=== PATIENT | male | born 1945 | race Caucasian/White ===

== ENCOUNTER 2020-08-14 08:16 | Inpatient (IN) | payer MEDICARE ==
[~2020-08-14] VITALS: Ht 190.5 cm; Wt 88.7 kg
[2020-08-14 08:34] LABS: BASO % 0.5 % (0.0-2.0); EOS # 0.3 (0.0-0.7); EOS % 3.1 % (0-4.0); GRAN # 5.6 (1.4-6.5); HEMATOCRIT 41.7 % (42.0-52.0); HEMOGLOBIN 14.6 g/dl (13.5-18.0); LYMPH # 1.3 (1.2-3.4); LYMPH % 16.2 % (20.0-51.0); MEAN CELL VOLUME 89 fl (80.0-100.0); MEAN CORPUSCULAR HEMOGLOBIN 31 pg (27.0-31.0); MEAN CORPUSCULAR HGB CONC 35 g/dl (33.0-37.0); MONO # 1.1 (0.1-0.6); MONO % 12.8 % (1.7-9.3); PLATELET COUNT 249 K/mm3 (130-400)
[2020-08-14 08:41] LABS: INR 1.4 (0.8-3.0); PROTHROMBIN TIME 15.5 SECONDS (9.7-12.8)
[2020-08-14 08:47] LABS: ALANINE AMINOTRANSFERASE 23 U/L (4-49); ALBUMIN 4.7 gm/dL (3.5-5.0); ALKALINE PHOSPHATASE 130 U/L (50-136); ANION GAP 12 mmol/L (7-16); AST,SGOT 27 U/L (15-37); BILIRUBIN,TOTAL 1.4 mg/dL (0.0-1.0); BLOOD UREA NITROGEN 19 mg/dL (9-20); CALCIUM 9.5 mg/dL (8.4-10.2); CARBON DIOXIDE 23 mmol/L (22-30); CHLORIDE 106 mmol/L (98-107); CREATININE, serum 1.63 (0.66-1.25); GLUCOSE 160 mg/dL (74-106); POTASSIUM 3.8 mmol/L (3.4-5.0); SODIUM 141 mmol/L (137-145); TOTAL PROTEIN 7.9 gm/dL (6.4-8.2)
[2020-08-14 08:49] LABS: ALCOHOL(ethanol),MEDICAL < 10 mg/dL
[2020-08-14 09:00] LABS: TROPONIN-I < 0.012 ng/mL (0.000-0.035)
[2020-08-14 09:33] LABS: COLLECTION METHOD IN
[2020-08-14 09:41] LABS: PH 5 (5-8); SQUAMOUS EPITHELIAL None Seen /hpf; URINE APPEARANCE Clear; URINE BACTERIA None Seen /hpf; URINE BILIRUBIN Negative (NEGATIVE); URINE BLOOD Negative (NEGATIVE); URINE COLOR Straw; URINE GLUCOSE Negative (NEGATIVE); URINE KETONE Negative (NEGATIVE); URINE LEUKOCYTE ESTERASE Negative (NEGATIVE); URINE NITRATE Negative (NEGATIVE); URINE PROTEIN(semi-quant) 1+ (NEGATIVE); URINE RBC 0-2 /hpf; URINE UROBILINOGEN Negative (NEGATIVE)
[2020-08-14] MEDS ORDERED: NORVASC 10MG10 MG PO (12:23)
[2020-08-14] MEDS ORDERED: LOPRESSOR 225 MG/TAB PO (12:24)
[2020-08-14] MEDS ORDERED: K-DUR 10 MEQ T10 MEQ PO (12:26)
[2020-08-14] MEDS ORDERED: LIPITOR 40MG TA40 MG PO (12:26)
[2020-08-14] MEDS ORDERED: GLUCOTROL10 MG PO (12:26)
[2020-08-14] MEDS ORDERED: PRILOSEC 20MG20 MG PO (12:27)
[2020-08-14] MEDS ORDERED: LASIX 40MG TABL40 MG PO (12:27)
[2020-08-14] MEDS ORDERED: PRINIVIL20 MG PO (12:28)
[2020-08-14] MEDS ORDERED: JANTOVEN5 MG (12:29)
[2020-08-14] MEDS ORDERED: SYNTHROID0.075 MG/T PO (12:30)
--- NOTE | 2020-08-14 12:45 | NUR ---
PATIENT ARRIVED TO ROOM 345. PATIENT ORIENTED AND SETTELED INTO ROOM. CALL LIGHT WITHIN REACH.
[2020-08-14 12:50] VITALS: BP 151/65; PULSE 66; TEMP 97.3
[2020-08-14 12:55] VITALS: BP 151/65; PULSE 66; TEMP 97.3
--- NOTE | 2020-08-14 13:32 | NUR ---
5 PAGE COMPLETED AT THIS TIME. PATIENT IS A&OX4. TELE IN PLACE. PATIENT DENIES PAIN. DR. HILL ENTERED ROOM DURING 5 PAGE. WILL COMPLETE MED REC AND ALLERGY REVIEW ONCE PATIENT IS DONE VISITING WITH PHYSICIAN.
[2020-08-14] MEDS ORDERED: EPA FISH OIL1 SGL PO (13:40)
[2020-08-14] MEDS ORDERED: VITAMIN FLUSH-F1 CAP (13:41)
--- NOTE | 2020-08-14 15:01 | NUR ---
PAGED FOR CRDIOLOGY CONSULT. AWAITING RETURN CALL.
--- NOTE | 2020-08-14 15:02 | NUR ---
AWARE OF CARDIOLOGY CONSULT. NO ORDERS GIVEN AT THIS TIME.
[2020-08-14 15:51] VITALS: BP 147/56; PULSE 54; TEMP 97.6
--- NOTE | 2020-08-14 16:30 | NUR ---
PATIENT PASSED WATER CHALLENGE. AHA DIET ORDER ALREADY PRESENT IN ORDERS PER .
--- NOTE | 2020-08-14 17:50 | NUR ---
PATIENT TOLERATING AHA DIET WITHOUT DIFFICULTIES. PATIENT EDUCATED ON THE USE OF CALL LIGHT AND SAFETY WHEN NEEDING TO GET UP. BED ALARM ON. CALL LIGHT IN REACH. PATIENT EATING DINNER TRAY. WILL REPORT OFF TO ONCOMING NURSE.
[2020-08-14 19:07] VITALS: BP 157/91; PULSE 48; TEMP 97.4
--- NOTE | 2020-08-14 21:15 | NUR ---
Pt. sitting up in bed at this time. Pt. is A&OX3, assessment complete. IV to lt. ac patent, IV fluids infusing per orders. Pt. denies pain or other needs, call light within reach.
[2020-08-14 23:40] VITALS: BP 141/62; PULSE 54; TEMP 97.7
[2020-08-15] VITALS (11 sets, daily range): BP systolic 137–162; BP diastolic 72–91; PULSE 62–80; TEMP 97.6–98.5
[2020-08-15 06:03] LABS: BASO # 0.1 (0.0-0.2); BASO % 0.6 % (0.0-2.0); EOS # 0.1 (0.0-0.7); EOS % 1.6 % (0-4.0); GRAN # 6.2 (1.4-6.5); GRAN % 68.4 % (42.2-75.2); HEMATOCRIT 39.4 % (42.0-52.0); HEMOGLOBIN 13.6 g/dl (13.5-18.0); LYMPH # 1.6 (1.2-3.4); LYMPH % 18.2 % (20.0-51.0); MEAN CELL VOLUME 90 fl (80.0-100.0); MEAN CORPUSCULAR HEMOGLOBIN 31 pg (27.0-31.0); MEAN CORPUSCULAR HGB CONC 35 g/dl (33.0-37.0); MEAN PLATELET VOLUME 9.3 fl (7.4-10.4); PLATELET COUNT 237 K/mm3 (130-400); RED BLOOD COUNT 4.37 M/mm3 (4.20-5.60); REDCELL DISTRIBUTION WIDTH-CV 13.1 % (11.5-14.5)
[2020-08-15 06:15] LABS: CALCIUM 8.7 mg/dL (8.4-10.2); CHOLESTEROL RISK RATIO 7.9; CREATININE, serum 1.43 (0.66-1.25); POTASSIUM 3.7 mmol/L (3.4-5.0)
[2020-08-15 09:11] LABS: INR 1.5 (0.8-3.0); PROTHROMBIN TIME 16.9 SECONDS (9.7-12.8)
--- NOTE | 2020-08-15 11:00 | NUR ---
ANESTHESIA NOTIFIED OF CONSULT FOR MISSY WITH POSSIBLE CARDIOVERSION. CONSENT FORM SIGNED AND PLACED ON PATIENTS CHART. THIS NURSE DISCUSSED NEURO CHECKS WITH MARC FUNEZ GIVEN TO CHANGE FREQUENCY FROM Q2H TO Q4H TO THIS NURSE.
--- NOTE | 2020-08-15 11:04 | NUR ---
SW met with the patient to discuss discharge plan. The patient lives in [place] with his , Ninoska (ph#[phone]). He reports independence with ADLs and has a cane available, if needed. The patient's PCP is Dr. Halima Ellis and he receives his medications from a mail order. He reports no difficulties obtaining his meds. The patient does not have a DPOA-HC in EMR, but he states that he does have one completed and that his is his DPOA-HC. The patient plans to return home with his upon discharge. The patient is to have a MISSY today. SW attempted to contact his , Ninoska, to review d/c plan. SW left her a voicemail. SW to follow as needed.
--- NOTE | 2020-08-15 11:05 | NUR ---
PATIENT TAKEN DOWN FOR MRI. WILL WAIT FOR PATIENT ARRIVAL BACK TO ROOM 345.
--- NOTE | 2020-08-15 11:57 | NUR ---
First visit from the brand analyst. No needs right now.
--- NOTE | 2020-08-15 12:30 | NUR ---
PATIENTS LEFT AC PARTIALLY PULLED OUT BY MRI. UPON ENTRY TO THE ROOM THE CATHETER HAD MIGRATED OUT OF THE AC AND BLOOD PRESENT ON SHEETS. LEFT AC INT DISCONTINUED. STUDENT RN ATTEMPTED IV START. NEW 20G INT STARTED IN LEFT FOREARM BY THIS NURSE. PATIENT TOLERATED WELL. PATIENT CONNECTED TO IV FLUIDS VIA GRAVITY FLOW FOR MISSY.
--- NOTE | 2020-08-15 12:35 | NUR ---
PATIENT TAKEN DOWN FOR MISSY VIA BED. WILL WAIT FOR ARRIVAL BACK TO ROOM 345.
--- NOTE | 2020-08-15 15:37 | NUR ---
PATIENT PULLED OUT IV POST MISSY,CARDIOVERSION. THIS NURSE ATTEMPTED TWICE WITHOUT SUCCESS. WILL HAVE ANOTHER NURSE ATTEMPT. POST PROCEDURE VSS. PATIENT DENIES PAIN AT THIS TIME. WILL CONTINUE TO MONITOR.
--- NOTE | 2020-08-15 19:23 | NUR ---
PATIENT HAD UNEVENTFUL REST OF THE AFTERNOON. PATIENT TOLERATING DIET WITHOUT DIFFICULTIES. PATIENT DENIES PAIN. CALL LIGHT IN REACH. BED ALARM ON. BEDSIDE REPORT GIVEN TO JB OLIVER.
--- NOTE | 2020-08-15 20:00 | NUR ---
Pt. sitting up in bed watching TV at this time. Pt, is A&OX3, assessment complete. INT started to rt. hand by glazier supervisor. Pt. denies pain or other needs, call light within reach.
[2020-08-16 04:11] VITALS: BP 142/75; PULSE 59; TEMP 97.6
[2020-08-16 05:28] LABS: BASO # 0.1 (0.0-0.2); BASO % 0.8 % (0.0-2.0); EOS # 0.2 (0.0-0.7); EOS % 3.5 % (0-4.0); GRAN # 3.7 (1.4-6.5); HEMATOCRIT 40.6 % (42.0-52.0); LYMPH # 1.6 (1.2-3.4); LYMPH % 24.4 % (20.0-51.0); MEAN CELL VOLUME 89 fl (80.0-100.0); MEAN CORPUSCULAR HEMOGLOBIN 31 pg (27.0-31.0); MEAN CORPUSCULAR HGB CONC 35 g/dl (33.0-37.0); MEAN PLATELET VOLUME 8.9 fl (7.4-10.4); MONO % 15.1 % (1.7-9.3); PLATELET COUNT 247 K/mm3 (130-400); RED BLOOD COUNT 4.55 M/mm3 (4.20-5.60)
[2020-08-16 05:34] LABS: INR 1.7 (0.8-3.0); PROTHROMBIN TIME 18.6 SECONDS (9.7-12.8)
[2020-08-16 05:43] LABS: CALCIUM 8.9 mg/dL (8.4-10.2); CREATININE, serum 1.38 (0.66-1.25); MAGNESIUM 2.1 mg/dL (1.6-2.3); POTASSIUM 3.7 mmol/L (3.4-5.0)
--- NOTE | 2020-08-16 06:47 | NUR ---
bedside shift report received from JB Sims
[2020-08-16 07:40] VITALS: BP 149/74; PULSE 73; TEMP 97.4
--- NOTE | 2020-08-16 07:45 | NUR ---
assisted up to bathroom and voids without difficulty, gait is steady, assisted back to bed, full assessment completed, see interventions for further info, denies needs
--- NOTE | 2020-08-16 10:14 | NUR ---
appears to be dozing, in bed with eyes closed, resp quiet and easy
[2020-08-16 11:12] VITALS: BP 163/84; PULSE 57; TEMP 97.8
--- NOTE | 2020-08-16 12:15 | NUR ---
sitting up in bed having lunch, denies any needs
--- NOTE | 2020-08-16 13:33 | NUR ---
appears to be dozing
--- NOTE | 2020-08-16 13:37 | NUR ---
SW attempted to contact the patient's to review d/c plan. SW left her a message. SW then contacted and reviewed the d/c plan with the patient's daughter, Ayesha. Ayesha reports that they have no concerns about the patient returning home and are ready for him to come home. No additional needs at this time.
--- NOTE | 2020-08-16 15:23 | NUR ---
resting in bed watching TV
[2020-08-16 15:56] VITALS: BP 151/76; PULSE 55; TEMP 97.3
--- NOTE | 2020-08-16 15:59 | NUR ---
watching TV, denies needs
--- NOTE | 2020-08-16 16:43 | NUR ---
The patient's , Ninoska, returned SW's phone call. Ninoska reports that she has no concerns about the patient returning back home with her upon discharge. No additional needs at this time.
--- NOTE | 2020-08-16 18:51 | NUR ---
resting in bed, watching TV, bedside shift report given to JB Thomas
[2020-08-16 19:54] VITALS: BP 154/80; PULSE 76; TEMP 98
--- NOTE | 2020-08-16 20:30 | NUR ---
Initial shift assessment done- denies pain, states no chest pain, or SOB, or palpitations, Tele NSR, VSS, no requests, having a snack that family left for him
[2020-08-16 22:58] VITALS: BP 148/79; PULSE 77; TEMP 97.9
[2020-08-17 03:12] VITALS: BP 146/80; PULSE 66; TEMP 97.9
--- NOTE | 2020-08-17 05:16 | NUR ---
Quiet night- Tele SR rate 68/min, denies pain- up to bathroom with assist- steady on feet VSS
[2020-08-17 06:52] LABS: BASO % 0.6 % (0.0-2.0); EOS # 0.2 (0.0-0.7); EOS % 3.3 % (0-4.0); GRAN # 4.3 (1.4-6.5); GRAN % 61.8 % (42.2-75.2); HEMATOCRIT 39.8 % (42.0-52.0); LYMPH # 1.2 (1.2-3.4); LYMPH % 17.6 % (20.0-51.0); MEAN CELL VOLUME 89 fl (80.0-100.0); MEAN CORPUSCULAR HEMOGLOBIN 31 pg (27.0-31.0); MEAN CORPUSCULAR HGB CONC 35 g/dl (33.0-37.0); MEAN PLATELET VOLUME 9.2 fl (7.4-10.4); MONO # 1.2 (0.1-0.6); MONO % 16.6 % (1.7-9.3); PLATELET COUNT 237 K/mm3 (130-400); RED BLOOD COUNT 4.47 M/mm3 (4.20-5.60)
[2020-08-17 06:54] LABS: INR 2.3 (0.8-3.0); PROTHROMBIN TIME 26.4 SECONDS (9.7-12.8)
[2020-08-17 06:57] LABS: CALCIUM 8.8 mg/dL (8.4-10.2); CREATININE, serum 1.4 (0.66-1.25); POTASSIUM 3.5 mmol/L (3.4-5.0)
[2020-08-17 08:15] VITALS: BP 144/70; PULSE 99; TEMP 97.6
[2020-08-17] MEDS ORDERED: LIPITOR 80MG80 MG PO (09:00)
[2020-08-17] MEDS ORDERED: BETAPACE 80MG80 MG PO (09:00)
[2020-08-17] MEDS ORDERED: ELIQUIS 5MG PO (09:00)
[2020-08-17] MEDS ORDERED: ASPIRIN 81M81 MG/TA2 PO (09:01)
[2020-08-17 11:14] VITALS: BP 140/69; PULSE 51; TEMP 98.2
--- NOTE | 2020-08-17 12:10 | NUR ---
SEE MORNING SHIFT ASSESSMENT. NEURO CHECKS STABLE. PATIENT DENIES COMPLAINTS OF PAIN. VSS. DISCHARGE INSTRUCTIONS REVIEWED WITH PATIENT. QUESTIONS SOUGHT AND ANSWERED. PATIENT PERSONAL BELONGING GATHERED. PATIENT TAKEN TO PERSONAL VEHICLE VIA WHEELCHAIR BY SURGICAL STAFF. PATIENT DISCHARGED.
== END 2020-08-17 12:10 | disposition home or self-care (01) | DRG 65 ==
LOC: COL.ER 08:16 → SURG 09:53
PROVIDERS: Emergency Medicine; Physician Assistant; ADMIT Hospitalist
PROC: 5A2204Z Restoration of Cardiac Rhythm, Single (ICD-10-PCS; principal; 2020-08-15)
DX: I63.9 Cerebral infarction, unspecified (principal); I48.19 Other persistent atrial fibrillation; N17.9 Acute kidney failure, unspecified; E03.9 Hypothyroidism, unspecified; R29.700 NIHSS score 0; I12.9 Hypertensive chronic kidney disease with stage 1 through stage 4 chronic kidney disease, or unspecified chronic kidney disease; N18.9 Chronic kidney disease, unspecified; E11.22 Type 2 diabetes mellitus with diabetic chronic kidney disease; E11.42 Type 2 diabetes mellitus with diabetic polyneuropathy; I44.0 Atrioventricular block, first degree; Z20.828 Contact with and (suspected) exposure to other viral communicable diseases; Z86.73 Personal history of transient ischemic attack (TIA), and cerebral infarction without residual deficits; Z79.01 Long term (current) use of anticoagulants; Z79.84 Long term (current) use of oral hypoglycemic drugs
CPT/HCPCS: 99231-AI; 99232-AI; 99239; A9585; G0378; J1650; J1815; J2704; J7030; Q9967

== ENCOUNTER 2020-09-23 08:05 | Day surgery (SDC) | payer MEDICARE, OTHER ==
[~2020-09-23] VITALS: Ht 190.5 cm; Wt 88.6 kg
[~2020-09-23 08:05] MED LIST: ASPIRIN 81M81 MG/TA2 PO; BETAPACE 80MG80 MG PO; ELIQUIS 5MG PO; EPA FISH OIL1 SGL PO; GLUCOTROL10 MG PO; JANTOVEN5 MG; K-DUR 10 MEQ T10 MEQ PO; LASIX 40MG TABL40 MG PO; LIPITOR 40MG TA40 MG PO; LIPITOR 80MG80 MG PO; LOPRESSOR 225 MG/TAB PO; NORVASC 10MG10 MG PO; PRILOSEC 20MG20 MG PO; PRINIVIL20 MG PO; SYNTHROID0.075 MG/T PO; VITAMIN FLUSH-F1 CAP
--- NOTE | 2020-09-23 08:50 | NUR ---
Pt in SR, procedure cancelled.
[2020-09-23] MEDS ORDERED: BETAPACE 120MG120 MG PO (08:52)
[2020-09-23 09:01] VITALS: BP 177/87; PULSE 54; TEMP 97.5
== END 2020-09-23 09:15 | disposition home or self-care (01) ==
LOC: COL.CAR 08:05
DX: I48.19 Other persistent atrial fibrillation (principal); E03.9 Hypothyroidism, unspecified; Z86.73 Personal history of transient ischemic attack (TIA), and cerebral infarction without residual deficits; E11.22 Type 2 diabetes mellitus with diabetic chronic kidney disease; I12.9 Hypertensive chronic kidney disease with stage 1 through stage 4 chronic kidney disease, or unspecified chronic kidney disease; N18.9 Chronic kidney disease, unspecified; Z79.82 Long term (current) use of aspirin; Z79.01 Long term (current) use of anticoagulants; Z79.899 Other long term (current) drug therapy; E78.2 Mixed hyperlipidemia; Z20.822 Contact with and (suspected) exposure to COVID-19; Z53.8 Procedure and treatment not carried out for other reasons

== ENCOUNTER 2022-05-20 12:26 | Emergency (ER) | payer MEDICARE, OTHER ==
[~2022-05-20] VITALS: Ht 188 cm; Wt 88.2 kg
[~2022-05-20 12:26] MED LIST changes: +BETAPACE 120MG120 MG PO
[2022-05-20 12:51] VITALS: TEMP 97.9
[2022-05-20 13:38] LABS: HEMATOCRIT 37.8 % (42.0-52.0); HEMOGLOBIN 13.1 g/dl (13.5-18.0); MEAN CELL VOLUME 86 fl (80.0-100.0); MEAN CORPUSCULAR HEMOGLOBIN 30 pg (27-31); MEAN CORPUSCULAR HGB CONC 35 g/dl (33.0-37.0); MEAN PLATELET VOLUME 9.8 fl (7.4-10.4); PLATELET COUNT 313 K/mm3 (130-400); RED BLOOD COUNT 4.38 M/mm3 (4.20-5.60)
[2022-05-20 13:58] LABS: ALBUMIN 3.1 gm/dL (3.4-4.8); BILIRUBIN,TOTAL 1.2 mg/dL (0.2-1.2); CALCIUM 9.8 mg/dL (8.4-10.2); CREATININE, serum 2.26 mg/dL (0.72-1.25); POTASSIUM 3.4 mmol/L (3.5-4.5); TOTAL PROTEIN 7.4 gm/dL (6.2-8.1)
[2022-05-20 14:02] LABS: BAND 2 % (0-10); LYMPHOCYTE 5 % (20.0-51.0); NEUTROPHILS 82 % (42.0-75.2); OVALOCYTES 1+; PLATELET ESTIMATE NORMAL (NORMAL)
[2022-05-20] MEDS ORDERED: CEPHALEXIN500 M1 PO (15:20)
[2022-05-20 15:38] VITALS: BP 151/84; PULSE 74
== END 2022-05-20 15:38 | disposition home or self-care (01) ==
LOC: COL.ER 12:26
PROVIDERS: Physician Assistant
DX: E11.621 Type 2 diabetes mellitus with foot ulcer (principal); L97.529 Non-pressure chronic ulcer of other part of left foot with unspecified severity; E11.65 Type 2 diabetes mellitus with hyperglycemia; Z86.73 Personal history of transient ischemic attack (TIA), and cerebral infarction without residual deficits; Z79.82 Long term (current) use of aspirin; Z79.84 Long term (current) use of oral hypoglycemic drugs; Z79.01 Long term (current) use of anticoagulants
CPT/HCPCS: J1815

== ENCOUNTER 2022-05-31 15:57 | Inpatient (IN) | payer MEDICARE, OTHER ==
[~2022-05-31] VITALS: Ht 190.5 cm; Wt 88.2 kg
[~2022-05-31 15:57] MED LIST changes: +CEPHALEXIN500 M1 PO
[2022-05-31 16:23] LABS: BASO # 0.1 K/mm3 (0.0-0.2); BASO % 0.8 % (0.0-2.0); EOS # 0.1 K/mm3 (0.0-0.7); EOS % 0.7 % (0.0-4.0); GRAN # 9.6 K/mm3 (1.4-6.5); GRAN % 79.5 % (42.2-75.2); HEMOGLOBIN 13.4 g/dl (13.5-18.0); LYMPH # 1.2 K/mm3 (1.2-3.4); MEAN CELL VOLUME 84 fl (80.0-100.0); MEAN CORPUSCULAR HEMOGLOBIN 30 pg (27-31); MEAN CORPUSCULAR HGB CONC 35 g/dl (33.0-37.0); MEAN PLATELET VOLUME 8.9 fl (7.4-10.4); MONO # 1.1 K/mm3 (0.1-0.6); MONO % 8.8 % (1.7-9.3); PLATELET COUNT 407 K/mm3 (130-400); REDCELL DISTRIBUTION WIDTH-CV 12.7 % (11.5-14.5)
[2022-05-31 16:40] LABS: ALBUMIN 3.6 gm/dL (3.4-4.8); BILIRUBIN,TOTAL 1.3 mg/dL (0.2-1.2); C-REACTIVE PROTEIN 0.3 mg/dL (0.00-0.50); CALCIUM 9.4 mg/dL (8.4-10.2); CREATININE, serum 3.54 mg/dL (0.72-1.25); POTASSIUM 3.7 mmol/L (3.5-4.5); TOTAL PROTEIN 8.1 gm/dL (6.2-8.1)
[2022-05-31 19:40] VITALS: BP 166/77; PULSE 63; TEMP 98
[2022-05-31] MEDS ORDERED: BETAPACE 80MG80 MG PO (20:23)
[2022-05-31] MEDS ORDERED: BETAPACE 120MG120 MG PO (20:28)
[2022-05-31 23:53] VITALS: BP 156/74; PULSE 95
[2022-06-01 03:42] VITALS: BP 167/84; PULSE 68; TEMP 97.8
--- NOTE | 2022-06-01 06:20 | NUR ---
PATIENT HAS HAD AN UNEVENTFUL NIGHT. PATIENT HAS RESTED IN BED AND DENIES PAIN, NEEDS OR CONCERNS. CALL LIGHT REMAINS WITHIN PATIENT REACH.
[2022-06-01 06:28] LABS: BASO # 0.1 K/mm3 (0.0-0.2); BASO % 0.7 % (0.0-2.0); EOS # 0.1 K/mm3 (0.0-0.7); EOS % 1.3 % (0.0-4.0); GRAN % 74.2 % (42.2-75.2); LYMPH # 1.3 K/mm3 (1.2-3.4); LYMPH % 11.8 % (20.0-51.0); MEAN CELL VOLUME 86 fl (80.0-100.0); MEAN CORPUSCULAR HGB CONC 35 g/dl (33.0-37.0); MEAN PLATELET VOLUME 9.1 fl (7.4-10.4); MONO # 1.2 K/mm3 (0.1-0.6); MONO % 11.6 % (1.7-9.3); PLATELET COUNT 345 K/mm3 (130-400); RED BLOOD COUNT 3.73 M/mm3 (4.20-5.60); REDCELL DISTRIBUTION WIDTH-CV 12.8 % (11.5-14.5)
[2022-06-01 06:32] LABS: HEMATOCRIT 32.2 % (42.0-52.0); MEAN CORPUSCULAR HEMOGLOBIN 30 pg (27-31)
[2022-06-01 06:33] LABS: HEMOGLOBIN 11.3 g/dl (13.5-18.0)
[2022-06-01 06:41] LABS: CALCIUM 8.4 mg/dL (8.4-10.2); CREATININE, serum 3.41 mg/dL (0.72-1.25); MAGNESIUM 2.4 mg/dL (1.6-2.6); POTASSIUM 3.4 mmol/L (3.5-4.5)
[2022-06-01 08:15] VITALS: BP 176/81; PULSE 61; TEMP 98.1
--- NOTE | 2022-06-01 10:30 | NUR ---
PT ALERT AND ORIENTED TIMES 4 SITTING IN CHAIR EATING BREAKFAST. VITALS STABLE. PT ON ROOM AIR. CALL LIGHT WITHIN REACH, NO FURTHER NEEDS IDENTIFIED.
--- NOTE | 2022-06-01 10:46 | NUR ---
Economic History Teacher met with patient to discuss discharge planning. SW introduced herself and explained her role. Patient stated "no, my doesn't beat me" and smiled. Patient lives in [place] with his , Ninoska (ph#[phone]) and sees Dr. Storey for primary care. Patient obtains medications from [employer] with no difficulties and does not normally use any DME, however has a cane that he secured from an estate sale. Patient is normally independent with ADLS and plans to return home at time of discharge. Patient believes he has completed DPOA-HC which he stated should designate his , Ninoska. Patient does not have Advance Directives in EMR. Discharge Plan:Home
[2022-06-01 11:40] VITALS: BP 156/73; PULSE 51; TEMP 98.2
[2022-06-01 13:39] LABS: CLOSTRIDIUM DIFF A/B NEG; CLOSTRIDIUM DIFF A/B INTERP No C.diff present
--- NOTE | 2022-06-01 14:57 | NUR ---
Noris: No uatsdin preference Situation: rotating field assembler went by room on rounds Background: Pt was resting and content Assessment: Pt has no needs right now. Pt appreciated the visit Recommendation: rotating field assembler will follow up as needed
[2022-06-01] MEDS ORDERED: DUREZOL 5 ML5 ML OD (15:10)
[2022-06-01] MEDS ORDERED: COSOPT 2%-0.5%10 ML OD (15:11)
[2022-06-01] MEDS ORDERED: ALPHAGAN 15 ML15 ML OD (15:11)
[2022-06-01 16:06] VITALS: BP 156/70; PULSE 63; TEMP 98.1
--- NOTE | 2022-06-01 17:35 | NUR ---
PT A&O TIMES 4, LAYING IN BED. VITALS STABLE, PT ON ROOM AIR. PT DENIES PAIN. CALL LIGHT WITHIN REACH. NO FURTHER NEEDS IDENTIFIED.
[2022-06-01 20:02] VITALS: BP 157/74; PULSE 63; TEMP 98
[2022-06-01 23:54] VITALS: BP 155/74; PULSE 62; TEMP 98.4
[2022-06-02 04:14] VITALS: BP 156/73; PULSE 65; TEMP 97.6
[2022-06-02 07:10] VITALS: BP 162/75; PULSE 65; TEMP 98
[2022-06-02 07:11] LABS: HEMOGLOBIN 11.2 g/dl (13.5-18.0); MEAN CELL VOLUME 89 fl (80.0-100.0); MEAN CORPUSCULAR HEMOGLOBIN 30 pg (27-31); MEAN CORPUSCULAR HGB CONC 34 g/dl (33.0-37.0); MEAN PLATELET VOLUME 8.9 fl (7.4-10.4); PLATELET COUNT 335 K/mm3 (130-400); RED BLOOD COUNT 3.71 M/mm3 (4.20-5.60); REDCELL DISTRIBUTION WIDTH-CV 13.1 % (11.5-14.5)
[2022-06-02 07:18] LABS: CALCIUM 8.4 mg/dL (8.4-10.2); CREATININE, serum 3.62 mg/dL (0.72-1.25); POTASSIUM 3.7 mmol/L (3.5-4.5)
[2022-06-02 07:50] LABS: BAND 4 % (0-10); EOSINOPHIL 1 % (0-4); LYMPHOCYTE 10 % (20.0-51.0); NEUTROPHILS 76 % (42.0-75.2); OVALOCYTES 1+; SCHISTOCYTES 1+
[2022-06-02 07:51] LABS: PLATELET ESTIMATE NORMAL (NORMAL)
[2022-06-02 11:13] VITALS: BP 153/72; PULSE 63; TEMP 98.5
--- NOTE | 2022-06-02 13:00 | NUR ---
PATIENT DID NOT RECIEVE LUNCH DOSE OF INSULIN 4 UNITS BECAUSE HE IS REFUSING TO EAT A LUNCH. HIS BLOOD SUGAR WAS 178. WILL CONTINUE TO MONITOR
[2022-06-02 15:41] VITALS: BP 150/74; PULSE 62; TEMP 97.4
--- NOTE | 2022-06-02 18:24 | NUR ---
PATIENT IS STILL C/O NAUSEA AND LOW APPETITE. 2X GIVEN ZOFRAN 4MG IV PUSH TO RELIIEVE. PATIENT IS REFUSING MEALS, BUT I WAS ABLE TO GET HIM TO DRINK SOME FLUIDS INCLUDING BROTH, GLUCERNA, AND WATER. ALL DOSES OF INSULIN WERE HELD TODAY DUE TO NOT CONSUMING MEALS AND BS DID NOT CLIMB. PATIENT FOOD DRESSING WAS CHANGED THIS AM. WOUND STILL LOOKS THE SAME. NEW ABX STARTED PER MD ORDERS BECAUSE OF RENAL FUNCTION. PATIENT DOES NOT COMPLAIN OF ANY PAIN
[2022-06-02 21:08] VITALS: BP 151/66; PULSE 66; TEMP 98.3
[2022-06-03 00:20] VITALS: BP 154/72; PULSE 64; TEMP 98.1
[2022-06-03 05:05] VITALS: BP 158/76; PULSE 66; TEMP 98.8
[2022-06-03 06:52] LABS: CALCIUM 8.5 mg/dL (8.4-10.2); CREATININE, serum 4.28 mg/dL (0.72-1.25); POTASSIUM 4.1 mmol/L (3.5-4.5)
[2022-06-03 07:04] LABS: HEMOGLOBIN 11.7 g/dl (13.5-18.0); MEAN CELL VOLUME 88 fl (80.0-100.0); MEAN CORPUSCULAR HEMOGLOBIN 30 pg (27-31); MEAN CORPUSCULAR HGB CONC 34 g/dl (33.0-37.0); MEAN PLATELET VOLUME 9.6 fl (7.4-10.4); PLATELET COUNT 373 K/mm3 (130-400); RED BLOOD COUNT 3.86 M/mm3 (4.20-5.60); REDCELL DISTRIBUTION WIDTH-CV 13.2 % (11.5-14.5)
[2022-06-03 07:09] LABS: HEMATOCRIT 34.1 % (42.0-52.0)
[2022-06-03 07:23] VITALS: BP 171/74; PULSE 64; TEMP 97.9
[2022-06-03 08:00] LABS: BAND 3 % (0-10); EOSINOPHIL 2 % (0-4); LYMPHOCYTE 7 % (20.0-51.0); METAMYELOCYTE 1 % (0-0); NEUTROPHILS 82 % (42.0-75.2); OVALOCYTES 1+; PLATELET ESTIMATE NORMAL (NORMAL)
--- NOTE | 2022-06-03 08:02 | NUR ---
Pt assessment complete. Pt is sitting up in bed upon entry, he is A/O x4. His breathing is even and unlabored on RA. Pt denies any SOB. No pain at this time. Dressing in place to L foot, will change later today. POC discussed with patient. No needs at this time.
--- NOTE | 2022-06-03 09:25 | NUR ---
Pt states he has had most of glucerna and a few bites of toast. Does not feel nauseated at this time. Spoke with him regarding the urine sample as well as the IVF.
[2022-06-03 11:22] VITALS: BP 150/65; PULSE 64; TEMP 97.8
--- NOTE | 2022-06-03 15:02 | NUR ---
Gomez catheter placed. Approximately 30mls drained from bag. Pt tolerated well.
[2022-06-03 15:14] LABS: COLLECTION METHOD CLEAN CATCH
[2022-06-03 15:25] LABS: URINE APPEARANCE Hazy (CLEAR/HAZY); URINE BLOOD 3+ (NEGATIVE); URINE COLOR Yellow (YELLOW); URINE GLUCOSE TRACE (NEGATIVE); URINE KETONE TRACE (NEGATIVE); URINE NITRATE Negative (NEGATIVE); URINE PROTEIN(semi-quant) 3+ (NEGATIVE); URINE UROBILINOGEN 0.2 E.U/dL (0.2-1.0)
[2022-06-03 15:26] VITALS: BP 151/66; PULSE 63; TEMP 98.3
[2022-06-03 15:27] LABS: MUCOUS Present (NOT PRESENT); SQUAMOUS EPITHELIAL 0-2 /hpf (0-10); URINE BACTERIA Rare /hpf (NONE SEEN); URINE RBC >50 /hpf (0-2)
[2022-06-03 15:31] LABS: CALCIUM 8.5 mg/dL (8.4-10.2); CREATININE, serum 4.5 mg/dL (0.72-1.25); POTASSIUM 3.5 mmol/L (3.5-4.5)
[2022-06-03 16:06] LABS: CREATININE, serum 4.4 mg/dL (0.72-1.25)
[2022-06-03 16:28] LABS: FRACTIONAL EXCRETION OF NA+ 0.59 %
--- NOTE | 2022-06-03 17:19 | NUR ---
Pt sat in bed through the day. Not a lot of motivation to move around or sit in the chair. Highly encouraged to work with therapy as he was initially refusing. Pt encouraged to try and eat and drink when taking pills as this seems to nauseate patient, very hesitant. Dr. Keenan notified of low urine output. Call light within reach.
[2022-06-03 20:32] VITALS: BP 161/79; PULSE 93; TEMP 98.7
[2022-06-04] VITALS (7 sets, daily range): BP systolic 147–169; BP diastolic 68–79; PULSE 52–85; TEMP 97.5–98.9
[2022-06-04 06:49] LABS: MEAN CELL VOLUME 89 fl (80.0-100.0); MEAN CORPUSCULAR HEMOGLOBIN 30 pg (27-31); MEAN CORPUSCULAR HGB CONC 34 g/dl (33.0-37.0); MEAN PLATELET VOLUME 9.1 fl (7.4-10.4); PLATELET COUNT 335 K/mm3 (130-400); RED BLOOD COUNT 3.69 M/mm3 (4.20-5.60); REDCELL DISTRIBUTION WIDTH-CV 13.2 % (11.5-14.5)
[2022-06-04 07:02] LABS: HEMATOCRIT 32.7 % (42.0-52.0)
--- NOTE | 2022-06-04 07:17 | NUR ---
PT AWAKE, LYING IN BED, DENIES COMPLAINTS OF PAIN, BREAKFAST ORDERED FOR THE PATIENT.
[2022-06-04 07:18] LABS: ALBUMIN 2.7 gm/dL (3.4-4.8); CALCIUM 8.2 mg/dL (8.4-10.2); CREATININE, serum 4.47 mg/dL (0.72-1.25); MAGNESIUM 2.3 mg/dL (1.6-2.6); PHOSPHOROUS 3.9 mg/dL (2.3-4.7); POTASSIUM 3.4 mmol/L (3.5-4.5)
[2022-06-04 08:06] LABS: BAND 2 % (0-10); EOSINOPHIL 2 % (0-4); LYMPHOCYTE 13 % (20.0-51.0); NEUTROPHILS 79 % (42.0-75.2)
[2022-06-04 08:07] LABS: PLATELET ESTIMATE NORMAL (NORMAL); SCHISTOCYTES 1+
--- NOTE | 2022-06-04 13:51 | NUR ---
Primary nurse was assisted with [phone] patient care by [employer] [facility] student Ilsa Segovia and [employer] instructor Hillary ANG-GEORGE, RN
--- NOTE | 2022-06-04 18:57 | NUR ---
pt had a calm day, vss, alert and orient x4,due medication given all tolarated well, pt c/o nausea throughout the day, wound care done x1, pt with laura draining bloody urine, pt on iv n/saline. denies pain throughout the day.
[2022-06-05 03:32] VITALS: BP 157/68; PULSE 63; TEMP 97.5
--- NOTE | 2022-06-05 05:45 | NUR ---
ASSESSMENT COMPLETE FOR ASSOCIATE MARKETING MANAGER. PT RESTING IN BED NAPPING. PT DENIED GENERAL PAIN, CHEST PAIN, PALPITATIONS, N,V, SOB OR DIZZINESS. PT CONTINUES WITH HEMATURIA. I & O'S FOR THIS SHIFT WAS 1380ML IN, 250ML OUT. (NOTE: ORDER GIVEN AT END OF DAYSHIFT AROUND 1900HRS BY HOSPITALIST TO CONTINUE TO WATCHING FOR ANOTHER 12HRS FOR A TOTAL OF 24HRS PER DAYSHIFT RN). WILL CONTINIUE TO MONITOR; WILL PASS ON TO DAYSHIFT RN. PT ALSO HAD A LOOSE BLOODY STOOL. OCCULT STOOL COLLECTED AND SENT TO LAB. OCCULT STOOL WAS POSITIVE. HOSPITALIST AWARE. GI CONSULT ORDERED AND CALLED. PT EXPRESSED NO ADDITIONAL NEEDS AT THIS TIME. CALL LIGHT WITHIN REACH.
[2022-06-05 06:54] LABS: HEMOGLOBIN 11.2 g/dl (13.5-18.0); MEAN CELL VOLUME 88 fl (80.0-100.0); MEAN CORPUSCULAR HEMOGLOBIN 30 pg (27-31); MEAN CORPUSCULAR HGB CONC 34 g/dl (33.0-37.0); MEAN PLATELET VOLUME 9.1 fl (7.4-10.4); PLATELET COUNT 366 K/mm3 (130-400); RED BLOOD COUNT 3.72 M/mm3 (4.20-5.60); REDCELL DISTRIBUTION WIDTH-CV 13.4 % (11.5-14.5)
[2022-06-05 07:02] LABS: HEMATOCRIT 32.8 % (42.0-52.0)
[2022-06-05 07:15] LABS: ALBUMIN 2.8 gm/dL (3.4-4.8); CALCIUM 8.3 mg/dL (8.4-10.2); CREATININE, serum 4.52 mg/dL (0.72-1.25); PHOSPHOROUS 3.9 mg/dL (2.3-4.7); POTASSIUM 3.7 mmol/L (3.5-4.5)
[2022-06-05 07:19] VITALS: BP 174/72; PULSE 64; TEMP 98
[2022-06-05 07:36] LABS: BAND 10 % (0-10); LYMPHOCYTE 5 % (20.0-51.0); NEUTROPHILS 77 % (42.0-75.2); OVALOCYTES 1+; PLATELET ESTIMATE NORMAL (NORMAL)
[2022-06-05 11:45] VITALS: BP 166/92; PULSE 61; TEMP 98
--- NOTE | 2022-06-05 13:49 | NUR ---
Primary nurse was assisted with [phone] patient care by [employer] student Ilsa Segovia and [employer] instructor Hillary PETERSON, RN.
--- NOTE | 2022-06-05 14:50 | NUR ---
Patient to transfer to [facility].
--- NOTE | 2022-06-05 15:19 | NUR ---
DRESSING TO FOOT CHANGED, PATIENT TOLERATED WITH NO ISSUES OR PAIN.
[2022-06-05 16:00] VITALS: BP 175/77; PULSE 60; TEMP 97.6
--- NOTE | 2022-06-05 17:12 | NUR ---
REPORT CALLED TO AUGUSTO LEE TO JB BYRD. ALL QUESTIONS ANSWERED, AND CALL BACK NUMBER GIVEN.
--- NOTE | 2022-06-05 17:36 | NUR ---
PATIENT PICKED UP BY EMS TRANSPORT. PATIENT LEFT IN STABLE CONDITION. NO ISSUES. IV AND CURTIS PATENT.
== END 2022-06-05 17:36 | disposition short-term general hospital (02) | DRG 638 ==
LOC: COL.ER 15:57 → MEDICAL 18:45 → COL.ER 18:45 → MEDICAL 18:46
PROVIDERS: Emergency Medicine; Internal Medicine; Student in an Organized Health Care Education/Training Program; ADMIT Student in an Organized Health Care Education/Training Program
DX: E11.621 Type 2 diabetes mellitus with foot ulcer (principal); L03.116 Cellulitis of left lower limb; E87.2 Acidosis; K92.1 Melena; L97.529 Non-pressure chronic ulcer of other part of left foot with unspecified severity; I12.9 Hypertensive chronic kidney disease with stage 1 through stage 4 chronic kidney disease, or unspecified chronic kidney disease; I48.91 Unspecified atrial fibrillation; N17.9 Acute kidney failure, unspecified; N18.9 Chronic kidney disease, unspecified; E11.65 Type 2 diabetes mellitus with hyperglycemia; E11.22 Type 2 diabetes mellitus with diabetic chronic kidney disease; E88.09 Other disorders of plasma-protein metabolism, not elsewhere classified; N05.9 Unspecified nephritic syndrome with unspecified morphologic changes; E03.9 Hypothyroidism, unspecified; K21.9 Gastro-esophageal reflux disease without esophagitis; K30 Functional dyspepsia; R31.9 Hematuria, unspecified; E78.5 Hyperlipidemia, unspecified; R53.1 Weakness; Z79.01 Long term (current) use of anticoagulants; Z79.82 Long term (current) use of aspirin; Z86.73 Personal history of transient ischemic attack (TIA), and cerebral infarction without residual deficits
CPT/HCPCS: OP; A4314; G0378; J0692; J1815; J2405; J2543; J3370; J7030; J7050; J7120

== ENCOUNTER 2022-09-15 09:36 | Day surgery (SDC) | payer MEDICARE, OTHER ==
[~2022-09-15] VITALS: Ht 190.5 cm; Wt 77.5 kg
[~2022-09-15 09:36] MED LIST changes: +ALPHAGAN 15 ML15 ML OD; +B-121000 MCG PO; +CORDARONE200 MG/TAB PO; +COREG 25MG25 MG/TAB PO; +COREG12.5 MG PO; +COSOPT 2%-0.5%10 ML OD; +DOXYCYCLINE 10100 MG PO; +DUREZOL 5 ML5 ML OD; +HYDRALAZINE HC100 MG PO; +IMDUR 60MG60 MG/TAB PO; +MAALOX ADVANCE148 ML PO; +MELATONIN5 M1 SL; +MIRALAX PA17 GM/Dose PO; +MYLANTA COAT-C355 ML PO; +NOVOLOG FLEX100 U/ML SQ; +PEPCID 20MG TAB20 MG PO; +PHOSLO667 MG PO; +PREDNISONE10 MG PO; +PRESERVISION1 SGL PO; +TYLENOL 325MG325 MG PO
[2022-09-15 10:43] LABS: MEAN CELL VOLUME 92 fl (80.0-100.0); MEAN CORPUSCULAR HEMOGLOBIN 29 pg (27-31); MEAN CORPUSCULAR HGB CONC 32 g/dl (33.0-37.0); MEAN PLATELET VOLUME 10.3 fl (7.4-10.4); PLATELET COUNT 482 K/mm3 (130-400); RED BLOOD COUNT 3.42 M/mm3 (4.20-5.60)
[2022-09-15 10:46] LABS: HEMATOCRIT 31.6 % (42.0-52.0)
[2022-09-15 10:47] LABS: INR 2.6 (0.8-3.0); PROTHROMBIN TIME 30.2 SECONDS (9.7-12.8)
[2022-09-15 10:49] VITALS: BP 128/62; PULSE 65; TEMP 97.7
[2022-09-15 10:50] LABS: PARTIAL THROMBOPLASTIN TIME 33.6 SECONDS (26.0-37.0)
[2022-09-15 10:54] LABS: CALCIUM 8.6 mg/dL (8.4-10.2); CREATININE, serum 4.63 mg/dL (0.72-1.25); POTASSIUM 4.8 mmol/L (3.5-4.5)
[2022-09-15] MEDS ORDERED: LEVEMIR FLEX100 U/ML SQ (11:14)
[2022-09-15 11:15] LABS: THYROID STIMULATING HORMONE 1.287 uIU/mL (0.350-4.940)
[2022-09-15 11:33] LABS: BAND 2 % (0-10); LYMPHOCYTE 3 % (20.0-51.0); NEUTROPHILS 87 % (42.0-75.2); PLATELET ESTIMATE INCREASED (NORMAL)
[2022-09-15 11:34] LABS: ANISOCYTOSIS 1+; HYPOCHROMIA 2+; MICROCYTOSIS 1+; OVALOCYTES 1+; POIKILOCYTOSIS 2+; SCHISTOCYTES 1+
[2022-09-15 12:15] VITALS: BP 112/59; PULSE 56
[2022-09-15 12:30] VITALS: BP 116/71; PULSE 63
[2022-09-15 12:45] VITALS: BP 128/67; PULSE 65
[2022-09-15 13:00] VITALS: BP 128/71; PULSE 67
[2022-09-15 13:15] VITALS: BP 124/65; PULSE 68
--- NOTE | 2022-09-15 13:34 | NUR ---
Pt is ready for discharge. He did well during his recovery, remaining in sinus rhythm. repeat ekg was obtained. I reviewed dc/fu instructions with pt and his . they verbalized understanding. Pt is amb with walker in room 15; gait is steady. Pt escorted to exit via wheelchair.
[2022-09-16 08:30] LABS: PATHOLOGY DIFF REVIEW OK
== END 2022-09-15 16:25 | disposition home or self-care (01) ==
LOC: COL.CAR 09:36
PROVIDERS: Internal Medicine Cardiovascular Disease
DX: I48.0 Paroxysmal atrial fibrillation (principal); I48.92 Unspecified atrial flutter
CPT/HCPCS: J2704; J7030